=== PATIENT | female | born 1985 | race Caucasian/White ===

== ENCOUNTER 2025-07-12 23:42 | Emergency (ER) | payer OTHER, SELFPAY ==
--- NOTE | 2025-07-12 23:45 | ED.GENADULT ---
HPI - General Adult General Time Seen by Provider: 23:45 Date Seen: 07/12/25 Chief complaint: Laceration/Wound Stated complaint: right index finger lac Time Seen by Provider: 07/12/25 23:45 Source: patient Mode of arrival: ambulatory Limitations: no limitations History of Present Illness HPI narrative: 40-year-old female who comes in today with finger laceration. Patient reports she cut herself on a piece of broken porcelain from a toilet about 2 hours prior to coming emergency department. Related Data Home Medications ?Medication ?Instructions ?Recorded ?Confirmed No Known Home Medications 10/24/23 07/13/25 Allergies Allergy/AdvReac Type Severity Reaction Status Date / Time codeine AdvReac Unknown History of Verified 07/13/25 00:12 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) Vaginal delivery (02/26/17) ?O80 - Encounter for full-term uncomplicated delivery (ICD-10) Trochanteric bursitis of both hips ?M70.61 - Trochanteric bursitis, right hip (ICD-10) ?M70.62 - Trochanteric bursitis, left hip (ICD-10) Surgical History (Updated 10/23/23 @ 12:47 by Brandi Cuellar) History of dilation and curettage (12/08/15) ?Z98.890 - Other specified postprocedural states (ICD-10) History of open reduction and internal fixation (ORIF) procedure ?Z98.890 - Other specified postprocedural states (ICD-10) Family History (Updated 10/23/23 @ 12:38 by Brandi Cuellar) Sister Crohn's disease Social History Smoking Status: Current some day smoker What tobacco products do you use: cigarettes Do you use any of these nicotine containing products: Vaping Products Second hand tobacco smoke exposure: Yes How often do you have a drink containing alcohol: 4 or more times a week How many standard drinks containing alcohol do you have on a typical day: 3 or 4 How often do you have six or more drinks on one occasion: Weekly AUDIT-C Alcohol total score: 8 Non-prescribed substance use: marijuana (any form) service: No Exam Narrative: Exam Narrative: General: well nourished , NAD Head: Atraumatic and normocephalic ENT: External ears and external nose are normal Eyes: Conjunctiva clear, pupils are equal reactive, external ocular motions are intact Neck: Full spontaneous range of motion of the neck Lungs: No respiratory distress Musculoskeletal: 16 mm laceration on the dorsum of the right index finger over the middle phalanx. Full flexion and extension at the MCP, DIP, PIP joints. Neurologic: No gross focal neurologic deficits Skin: No rashes Psych: Mood and affect are appropriate Const: Vital Signs, click to edit/add: Vital Signs - 24 hr 07/13/25 00:02 Temperature 98 F Pulse Rate [Right Pulse Oximeter] 74 Respiratory Rate 19 Blood Pressure [Le ft Upper Arm] 119/77 Pulse Oximetry 98 Oxygen Delivery Me thod Room Air Course Course ED Course: Additional records reviewed: None Additional history from: None Care impacted by: Anxiety, chronic pain Testing considered but not performed: See ED course Patient presents today with 16 mm right index finger laceration on the middle phalanx. No evidence of tendon injury, Full flexion extension at the MCP, DI P, PIP joints. Procedure: laceration repair, right index finger middle phalanx, 16 mm full-thickness. Risks and benefits discussed with patient, verbal consent was obtained. Lidocaine 1% with epinephrine 1 mL total injected along the wound edges. Wound was cleansed with wound cleanser and explored, no foreign body found. Edges were closed in a single later with four simple interrupted sutures of Ethilon 5 0. Discussed wound care, dressing placed, patient tolerated well. Vital Signs Vital signs: Initial Vital Signs Temperature 98 F 07/13/25 00:02 Temperature Source Temporal Artery Scan 07/13/25 00:02 Pulse Rate 74 07/13/25 00:02 Pulse Rhythm Regular 07/13/25 00:02 Pulse Strength 3+ Normal 07/13/25 00:02 Respiratory Rate 19 07/13/25 00:02 Blood Pressure 119/77 07/13/25 00:02 Blood Pressure Mean 91 07/13/25 00:02 Blood Pressure Position Sitting 07/13/25 00:02 Pulse Oximetry 98 07/13/25 00:02 Oxygen Delivery Method Room Air 07/13/25 00:02 Vital Signs Temperature 98 F 07/13/25 00:02 Pulse Rate 74 07/13/25 00:02 Respiratory Rate 19 07/13/25 00:02 Blood Pressure 119/77 07/13/25 00:02 Pulse Oximetry 98 07/13/25 00:02 Oxygen Delivery Method Room Air 07/13/25 00:02 Temperature 98 F 07/13/25 00:02 Pulse Rate 74 07/13/25 00:02 Respiratory Rate 19 07/13/25 00:02 Blood Pressure 119/77 07/13/25 00:02 Pulse Oximetry 98 07/13/25 00:02 Oxygen Delivery Method Room Air 07/13/25 00:02 Discharge Plan Discharge Clinical Impression: Laceration of right index finger Patient Disposition: Home, Self-Care Condition: Stable Instructions: Finger Laceration (ED) Additional Instructions: Keep splint on when active for 48 hours, you may remove this to wash your hands. Keep dry for 24 hours. After 24 hours, wash gently daily with soap and water. Apply antibiotic ointment and dressing as desired. Follow-up with your primary care doctor in 5-7 days for suture removal. Avoid forceful gripping or grasping with the right hand. Activity Level: Activity as Tolerated Discharge Diet: Regular Prescriptions: No Action No Known Home Medications Follow Up/Referrals: Dawood Moreira MD [Primary Care Provider, Family Practice] Stand Alone Forms: Couchsurfingth Info Instructions
--- OUTSIDE RECORDS SUMMARY | 2025-07-12 23:45 | XMS_ITS | Clinical Summary ---
Author Organization [facility] Address [address] [place] [address] Care Team Providers Care Senior Housekeeper Name Role Phone Dawood Moreira MD Primary Care Provider [phone] Source Comments You are receiving this document as you are listed as the primary care provider,follow-up provider, or the patient has been referred to you for consultation.This is in compliance with the Medicare and[facility] EHR Incentive Program,which states Providers who transition their patient to another setting of careor provider of care or refers their patient to another provider of care shouldprovide summary care record for each transition of care or referral. [facility] Social History Tobacco Use Types Packs/Day Years Used Date Smoking Tobacco: Never Assessed Comments Unknown Sex and Gender Information Value Date Recorded Sex Assigned at Not on file Legal Sex Female 4:16 PM CDT Gender Identity Not on file Sexual Orientation Not on file Plan of Treatment Health Maintenance Due Date Last Done Comments Cervical Cancer Screening Due 1985 Hep C Screening (Preventive Services) 1985 Mammogram 1985 HIV Screening (Preventive Services) 2001 Adult Preventive Visit 2003 HepB Vaccine (1) 2004 HPV Vaccine (1 - 3-dose SCDM series) 2012 COVID-19 Vaccine (3 - season) 2025 12/30/2020, 12/02/2020 Influenza Vaccine (#1) 2025 , 05/19/2019, 04/23/2018, Additional history exists DTaP/Tdap/Td Vaccine (2 - Tdap) 12/29/2026 12/29/2016 Zoster/Shingles Vaccine (1 of 2) 2035 HepA Vaccine Aged Out No longer eligi ble based on patient's age to complete this topic Hib Vaccine Aged Out No longer eligi ble based on patient's age to complete this topic IPV (Polio) Vaccine Aged Out No longe r eligible based on patient's age to complete this topic MCV4 Vaccine Aged Out No longer eligi ble based on patient's age to complete this topic Meningococcal B Vaccine Aged Out No l onger eligible based on patient's age to complete this topic Pneumococcal Vaccine Aged Out No long er eligible based on patient[place] [id number] [facility] Care Teams Senior Housekeeper Relationship Specialty Start Date End Date Dawood Moreira MD [address] [place] [address] PCP - General 04/07/19
--- OUTSIDE RECORDS SUMMARY | 2025-07-12 23:45 | XMS_ITS | Clinical Summary ---
Author Organization [place] Address [facility] [place] [address] Care Team Providers Care Wire Technician Name Role Phone Dawood Moreira MD Primary Care Provider [phone] Resolved Problems Problem Noted Date Diagnosed Date Resolved Date Acute left-sided low back pa in with left-sided sciatica 04/24/2019 05/28/2019 Social History Tobacco Use Types Packs/Day Years Used Date Smoking Tobacco: Never Assessed Adolescent Education Answer Date Record ed Getting School Help Needed Not on file 05/04 Comments Unknown Sex and Gender Information Value Date Recorded Sex Assigned at Not on file Legal Sex Female 2:15 PM CDT Gender Identity Not on file Sexual Orientation Not on file Plan of Treatment Not on file Insurance [facility] Care Teams Wire Technician Relationship Specialty Start Date End Date Dawood Moreira MD PCP - General Family Practice 04/24/19
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
[2025-07-13 00:02] VITALS: BP 119/77; PULSE 74; RESP 19; TEMP 36.6; O2SAT 98; BMI 28.9
[2025-07-13] MEDS: TETANUS/DIPHTH/PERTUSSIS 0.5 ML SYRINGE IM (00:40)
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
--- OUTSIDE RECORDS SUMMARY | 2025-07-13 01:01 | XMS_ITS | Clinical Summary ---
Author Organization [place] Address [facility] [place] [address] Care Team Providers Care Object Oriented Developer Name Role Phone Dawood Moreira MD Primary Care Provider [phone] Resolved Problems Problem Noted Date Diagnosed Date [...] Plan of Treatment Not on file Insurance [facility] COMMERCIAL Care Teams Object Oriented Developer Relationship Specialty Start Date End Date Dawood Moreira MD PCP - General Family Practice 04/24/19
--- OUTSIDE RECORDS SUMMARY | 2025-07-13 01:01 | XMS_ITS | Clinical Summary ---
Author Organization [facility] Address [address] [place] [address] Care Team Providers Care Construction Trades Contractor Name Role Phone Dawood Moreira MD Primary Care Provider [phone] Source Comments You are receiving this document as you are listed as the primary care provider,follow-up provider, or the patient has been referred to you for consultation.This is in compliance with the Medicare andMedicaid EHR Incentive Program,which states Providers who transition their patient to another setting of careor provider of care or refers their patient to another provider of care shouldprovide summary care record for each transition of care or referral. [facility] Social History Tobacco Use Types Packs/Day Years [...] patient[id number] [facility] Care Teams Construction Trades Contractor Relationship Specialty Start Date End Date Dawood Moreira MD [address] [place] [address] PCP - General 04/07/19
== END 2025-07-13 01:21 | disposition home or self-care (01) ==
PROVIDERS: Emergency Provider Family Medicine; PCP Family Medicine
DX: S61.210A Laceration without foreign body of right index finger without damage to nail, initial encounter (principal); W26.9XXA Contact with unspecified sharp object(s), initial encounter; Z23 Encounter for immunization
CPT/HCPCS: 12001; 90471; 90715; 99282; 99283